=== PATIENT | female | born 1935 | race Caucasian/White ===

== ENCOUNTER 2016-11-17 09:06 | Day surgery (SDC) | payer OTHER ==
[2016-11-17] MEDS ORDERED: Lactated Ringer's 500 ML IV ONE (10:58)
[2016-11-17] MEDS ORDERED: Propofol 10 mg/ml Inj (20 ML) ONE (11:20)
[2016-11-17 11:54] VITALS: TEMP 98
[2016-11-17 12:08] VITALS: BP 131/76; PULSE 66; RESP 10; O2SAT 98
== END 2016-11-17 12:09 | disposition home or self-care (01) ==
LOC: H.ENDO 09:06
PROVIDERS: ATTEND Internal Medicine Gastroenterology
DX: Z12.11 Encounter for screening for malignant neoplasm of colon (principal); E11.9 Type 2 diabetes mellitus without complications; I10 Essential (primary) hypertension; K64.8 Other hemorrhoids